=== PATIENT | female | born 1935 | race Caucasian/White ===

== ENCOUNTER 2019-02-12 23:56 | Emergency (ER) | payer BC ==
[2019-02-13 00:06] VITALS: BP 145/83; PULSE 82; TEMP 98.4; BMI 19.1
--- NOTE | 2019-02-13 00:06 | PDOC ---
History of Present Illness - General Chief Complaint: Weakness Stated Complaint: MALAISE Time Seen by Provider: 02/13/19 00:01 History Source: Patient Exam Limitations: No Limitations - History of Present Illness Initial Comments: 02/13/19 00:01 This is a 83-year-old female who lives alone. Patient called EMS because she has not been feeling good. Patient said she has not been feeling good for about 2 weeks now symptoms have not gotten any worse but they are not getting any better so she decided to come in and get evaluated. Patient has been to her doctor and had a cardiogram and blood work including thyroid studies within the last 2 weeks. Patient said that the thyroid studies were high so her doctor told her to stop her thyroid medicine which she did about 4 days ago. Patient is unable to describe any specific symptoms other than she felt like she had a burning sensation in her scalp and just did not feel well so called EMS. Patient denies any chest pain, shortness of breath, nausea, vomiting, diarrhea, fever, chills, abdominal pain, urinary symptoms or any other complaints. Patient does appear to be quite anxious here in the emergency department. Allergies: as per nursing notes Past Medical History: Arthritis, thyroid, anxiety, high cholesterol, irritable bowel syndrome Social history: Lives with family. No smoking. No alcohol. No illicit drugs. Surgical history: None General: No fevers or chills, no weakness, no weight loss does not feel well HEENT: No change in vision. No sore throat,. No ear pain CardioVascular: no chest discomfort. No shortness of breath Respiratory:No cough, or wheezing. Gastrointestinal: no nausea, vomiting, diarrhea or constipation, No rectal bleeding Genitourinary: No dysuria, hematuria, or frequency Musculoskeletal: No joint or muscle pain or swelling Neurologic: No headache, vertigo, dizziness or loss of consciousness Psychiatric: nor depression Skin: No rashes or easy bruising Endocrine: no increased thirst or abnormal weight change Allergic: no skin or latex allergy All other systems reviewed and normal Exam: General: Well-nourished well-developed individual, no acute distress HEENT: Throat: Normal, tonsils normal, no erythema or exudate Neck: Supple, no meningeal signs, no lymphadenopathy Eyes::Pupils equal reactive and round, extraocular motion intact Chest: Nontender to palpation Cardiac: S1-S2 normal, regular rate and rhythm, no murmurs rubs or gallops Respiratory: Lungs clear to auscultation bilateral Abdomen: Soft, nondistended, normal bowel sounds, there is no tenderness on palpation diffusely Extremities: Warm, dry, no cyanosis, clubbing, or edema Skin: No rashes Neuro: Alert and oriented x3, CN II - XII intact, nonfocal exam with normal strength, normal sensation, normal reflexes, normal gait, Psych: Normal mood and affect 02/13/19 00:03 Assessment and plan: This is an 83-year-old female who is healthy but over the last 2 weeks has been not feeling well. Patient called the ambulance [facility] for evaluation to come to the ED for evaluation. Patient does appear to be fairly anxious about her health and has a normal exam however will do a basic work-up including CBC, comp, EKG if work-up is negative patient will be discharged home and follow-up with her doctor on Thursday. Past History - Past Medical History Allergies/Adverse Reactions: Allergies Allergy/AdvReac Type Severity Reaction Status Date / Time No Known Allergies Allergy Verified 11/01/12 13:23 Home Medications: Ambulatory Orders Alprazolam [Xanax] 0.75 mg PO HS PRN 11/01/12 Atorvastatin Ca [Lipitor] 20 mg PO DAILY 11/01/12 Loratadine [Claritin -] 10 mg PO DAILY PRN 11/01/12 Multivitamin [Multivitamins] 1 each PO DAILY 11/01/12 S-Adenosylmethionine Sul Tosyl [Bebo-E] 400 mg PO DAILY 11/01/12 Sennosides [Senna -] 1 tab PO DAILY 11/01/12 Bupropion HCl [Bupropion Xl] 300 mg PO DAILY 04/27/15 Carisoprodol [Soma (Nf)] 350 mg PO TID PRN 02/12/19 Anemia: No Asthma: No Cancer: Yes (squamous cell x 2, melanoma) Cardiac Disorders: No CVA: No COPD: No CHF: No Dementia: No Diabetes: No GI Disorders: Yes (ibs) Disorders: No HTN: No Hypercholesterolemia: Yes Liver Disease: No Seizures: No Thyroid Disease: Yes - Surgical History Abdominal Surgery: No Appendectomy: No Cardiac Surgery: No Cholecystectomy: No Lung Surgery: No Neurologic Surgery: No Orthopedic Surgery: Yes (R shoulder arthroscopy) - Psycho Social/Smoking Cessation Hx Smoking History: Never smoked Have you smoked in the past 12 months: No Hx Alcohol Use: No Drug/Substance Use Hx: No Substance Use Type: None Hx Substance Use Treatment: No Discharge - Discharge Information Problems reviewed: Yes Clinical Impression/Diagnosis: Not feeling great Condition: Stable Disposition: HOME - Admission No - Follow up/Referral Referrals: Yasmin Albright MD [Primary Care Provider] - - Patient Discharge Instructions Additional Instructions: Return to the emergency department immediately with ANY new, persistent or worsening symptoms. Continue any medications as previously prescribed by your physician. You should follow up with your primary doctor as soon as possible regarding today's emergency department visit. . Please make sure your doctor reviews the results of your emergency evaluation. Thank you for coming to the Emergency Department today for your care. It was a pleasure to see you today. Please note that your evaluation is INCOMPLETE until you follow-up with your doctor. - Post Discharge Activity
[2019-02-13 01:42] LABS: BASO % 0.5 % (0-2.0); EOS % 2.4 % (0-4.5); HEMATOCRIT 38.1 % (32.4-45.2); HEMOGLOBIN 12.7 GM/dL (10.7-15.3); LYMPH % 26.8 % (8-40); MCH 31.8 pg (25.7-33.7); MCHC 33.3 g/dl (32.0-36.0); MEAN CELL VOLUME 95.7 fl (80-96); MEAN PLT VOLUME 8.7 fl (7.5-11.1); MONO % 10.8 % (3.8-10.2); NEUT % 59.5 % (42.8-82.8); PLATELET COUNT 272 K/MM3 (134-434); RBC 3.98 M/mm3 (3.60-5.2); RDW 13.1 % (11.6-15.6); WHITE BLOOD COUNT 6.8 K/mm3 (4.0-10.0)
[2019-02-13 01:51] LABS: HYALINE CASTS 1 /lpf (0-8); PH,URINE 5.5 (5.0-8.0); URINE APPEARANCE CLEAR; URINE BACTERIA 1.7 /hpf (NEGATIVE); URINE BILIRUBIN NEGATIVE (NEGATIVE); URINE COLOR YELLOW; URINE GLUCOSE (UA) NEGATIVE (NEGATIVE); URINE KETONE NEGATIVE (NEGATIVE); URINE LEUK ESTERASE 1+ (NEGATIVE); URINE NITRITE NEGATIVE (NEGATIVE); URINE PROTEIN NEGATIVE (NEGATIVE); URINE RBC 0 /hpf (0-4); URINE UROBILINOGEN 0.2 mg/dL (0.2-1.0); URINE WBC 3 /hpf (0-5)
[2019-02-13 02:26] LABS: ALBUMIN 3.8 g/dl (3.4-5.0); ALK PHOS 54 U/L (45-117); ANION GAP 6 MMOL/L (8-16); BILIRUBIN,TOTAL 0.2 mg/dL (0.2-1); BLOOD UREA NITROGEN 20.4 mg/dL (7-18); CALCIUM 8.8 mg/dL (8.5-10.1); CHLORIDE 105 mmol/L (98-107); CO2 28 mmol/L (21-32); CREATININE 0.8 mg/dL (0.55-1.3); GLUCOSE,RANDOM 91 mg/dL (74-106); POTASSIUM 4.2 mmol/L (3.5-5.1); SGOT/AST 18 U/L (15-37); SGPT/ALT 26 U/L (13-61); SODIUM 139 mmol/L (136-145); TOT PROT 6.8 g/dl (6.4-8.2)
--- NOTE | 2019-02-14 11:57 | EKG ---
Test Reason : Blood Pressure : / mmHG Vent. Rate : 077 BPM Atrial Rate : 077 BPM P-R Int : 168 ms QRS Dur : 070 ms QT Int : 358 ms P-R-T Axes : 091 052 069 degrees QTc Int : 405 ms NORMAL SINUS RHYTHM NORMAL ECG NO PREVIOUS ECGS AVAILABLE Confirmed by SHA MATTHEWS, CRIS ([id number]) on 02/14/2019 11:57:43 AM Referred By: MD MCDONALD Confirmed By:CRIS DALTON MD
== END 2019-02-13 02:36 | disposition home or self-care (01) ==
LOC: FER 23:56
DX: R69 Illness, unspecified (principal); E78.00 Pure hypercholesterolemia, unspecified; E07.9 Disorder of thyroid, unspecified; K58.9 Irritable bowel syndrome, unspecified; Z85.9 Personal history of malignant neoplasm, unspecified
CPT/HCPCS: 36415; 80053; 81003; 82550; 84484; 85025; 93005; 99283-25